=== PATIENT | female | born 1950 | race Caucasian/White ===

== ENCOUNTER 2024-01-29 09:24 | Emergency (ER) | payer MEDICARE, BC ==
[2024-01-29 10:14] LABS: Bilirubin Small (Negative); Blood, Urine Trace (Negative); Glucose, Urine (Dipstick) Negative (Negative); Ketone, Urine 15 mg/dL (Negative); Leukocyte Small (Negative); Nitrite Positive (Negative); Protein, Urine (Dipstick) 100 mg/dL (Neg-Trace); Specific Gravity, Urine 1.025 (1.005-1.030); Urobilinogen 0.2 mg/dL (Less than 2)
[2024-01-29 10:15] LABS: CAUTI Indications for Culture Dysuria,urgency,freq; Clarity Cloudy (Clear); RBC/HPF 0-3 HPF (0-3)
[2024-01-29 10:16] LABS: Bacteria/HPF 1+ HPF (None Seen)
[2024-01-29 10:17] LABS: Urine Culture Reflex Yes Yes
[2024-01-29] MEDS ORDERED: Phenazopyridine HCl 95 MG TAB ONE (10:46)
[2024-01-29] MEDS ORDERED: Sulfameth/Trimethoprim DS 800-160mg TAB ONE (10:46)
== END 2024-01-29 10:58 | disposition home or self-care (01) ==
LOC: MADERS 09:24
DX: N39.0 Urinary tract infection, site not specified (principal)
CPT/HCPCS: 81001; 87077; 87086; 87186; 99283